=== PATIENT | male | born 1985 | race Caucasian/White ===

== ENCOUNTER 2018-07-09 15:41 | Outpatient (CLI) | payer MEDICAID, SELFPAY ==
--- NOTE | 2018-07-09 15:53 | DI.RAD_ITS ---
SYMPTOMS/DIAGNOSIS: CHRONIC COUGH, R05 PA AND LATERAL CHEST: Comparison is made with October,. The cardiac and mediastinal contours have a normal appearance. The lungs are well inflated and clear. No infiltrate , effusion or bronchial thickening is seen. IMPRESSION: Negative chest x-ray.
[2018-07-09 16:23] LABS: Abs Immature Grans 0.03 k/cumm (0.0-0.09); Absolute Basophil Count 0.03 k/cumm (0.0-0.2); Absolute Eosinophil Count 0.12 k/cumm (0.0-0.7); Absolute Lymphocyte Count 2.37 k/cumm (1.2-3.4); Absolute Monocyte Count 1.04 k/cumm (0.11-0.7); Absolute Neutrophil Count 6.82 k/cumm (1.2-6.7); Basophils % 0.3; Eosinophils % 1.2; HCT 43.1 % (40.0-50.0); HGB 14.9 g/dL (13.5-17.5); Immature Grans % 0.3; Lymphocytes % 22.8; Mean Corp. HGB Concentration 34.6 g/dL (32.0-36.0); Mean Corpuscular Hemoglobin 31.6 pg (27.0-33.0); Mean Corpuscular Volume 91.3 fL (80-95); Mean Platelet Volume 10.4 fL (8.0-11.0); Neutrophils % 65.4; Platelet Count 253 x1000/uL (130-400); RBC 4.72 m/cumm (4.50-6.00); RBC Distribution Width 13.9 % (11.8-14.1); White Blood Cell Count 10.41 k/cumm (4.4-10.8)
== END 2018-07-09 16:01 ==
PROVIDERS: PCP Nurse Practitioner Family; Visit Provider Nurse Practitioner
DX: R05 Cough (principal); M54.5 Low back pain
CPT/HCPCS: 36415; 71046; 85025

== ENCOUNTER 2018-07-18 15:15 | Outpatient (REF) | payer MEDICAID, SELFPAY ==
[2018-07-18 18:54] LABS: ALT 24 U/L (12-78); AST 22 U/L (15-37); Alkaline Phosphatase 86 U/L (46-116); Anion Gap 7.1 mmol/L (3-11); BUN 17 mg/dL (7-18); Bilirubin, Total 0.3 mg/dL (0.2-1.0); CO2 29.9 mmol/L (21.0-32.0); CREATININE 1.05 mg/dL (0.70-1.30); Calcium 8.6 mg/dL (8.5-10.1); Chloride 104 mmol/L (98-107); Glucose 94 mg/dL (70-100); Sodium 141 mmol/L (136-145); Total Protein 6.7 g/dL (6.4-8.2)
== END 2018-07-18 15:35 ==
LOC: NCHCN 15:15
PROVIDERS: PCP Nurse Practitioner Family; Visit Provider Nurse Practitioner
DX: R53.83 Other fatigue (principal)
CPT/HCPCS: 80053; 84443

== ENCOUNTER 2018-07-24 02:55 | Outpatient (CLI) | payer MEDICAID, SELFPAY ==
[2018-07-24] MEDS: Inhaler, Assist Device 1 EACH MC (13:52)
[2018-07-24] MEDS: Albuterol HFA 18 GM 200 PUFF INH IH (13:52)
--- NOTE | 2018-07-26 15:21 | PFT_ITS ---
DATE OF DICTATION: July 26, 2018. DATE OF SERVICE: July 24, 2018. REQUESTING PROVIDER: Makeda Crockett N.P. Spirometry shows mild obstructive airways disease with significant bronchodilator response. Lung volumes show no evidence of restriction. Diffusion capacity normal. Airways resistance normal. IMPRESSION: Mild obstructive airways disease with significant bronchodilator response. Clinical correlation recommended. SEE SCANNED DOCUMENT IN THE EMR FOR DATA AND GRAPHS
== END 2018-07-24 03:15 ==
PROVIDERS: PCP Nurse Practitioner Family; Visit Provider Nurse Practitioner
DX: R05 Cough (principal); F17.200 Nicotine dependence, unspecified, uncomplicated; J98.8 Other specified respiratory disorders
CPT/HCPCS: 94060; 94150; 94726; 94729

== ENCOUNTER 2020-03-26 10:36 | Outpatient (REF) | payer MEDICAID, SELFPAY ==
[2020-03-26 15:22] LABS: HCT 42.9 % (40.0-50.0); HGB 14.6 g/dL (13.5-17.5); Mean Corpuscular Hemoglobin 31.4 pg (27.0-33.0); Mean Corpuscular Volume 92.3 fL (80-95); Platelet Count 232 x1000/uL (130-400); RBC 4.65 m/cumm (4.50-6.00); RBC Distribution Width 14.4 % (11.8-14.1); White Blood Cell Count 8.47 k/cumm (4.4-10.8)
[2020-03-26 15:33] LABS: INR 1.1 (0.9-1.1); Prothrombin Time 10.6 sec (9.3-11.0)
== END 2020-03-26 10:56 ==
LOC: NCHCN 10:36
PROVIDERS: PCP Nurse Practitioner Family; Visit Provider Family Medicine
DX: K62.5 Hemorrhage of anus and rectum (principal)
CPT/HCPCS: 85027; 85610

== ENCOUNTER 2020-04-12 21:28 | Emergency (ER) | payer MEDICAID, SELFPAY ==
[2020-04-12 21:37] VITALS: BP 143/82; PULSE 88; RESP 20; TEMP 36.8; O2SAT 98
--- NOTE | 2020-04-12 21:59 | ED.GENADUL_ITS ---
Discharge Plan Disposition Patient Disposition: HOME Condition: Good Discharge Details Chief Complaint: Cellulitis Clinical Impression: Trench feet Primary Care Provider: Jolynn Churchill ED Provider: Pedro Cosby Home Meds and New Rx's Prescriptions: New lidocaine [Lidoderm] 1 PATCH patch 1 patch Topical Q24H Qty: 4 RF: 0 Continued albuterol sulfate [ProAir HFA] 90 mcg/actuation HFA aerosol inhaler 2 puff IH Q6H PRNRF: 0 budesonide-formoterol [Symbicort] 80-4.5 mcg/actuation HFA aerosol inhaler 2 puff IH DAILY RF: 0 Discharge Instructions Additional Instructions: You have trench foot. Please will apply half of the Lidoderm patch to each affected area daily. It is vitally important that you keep your feet dry at all times. I would recommend getting boots that are well aerated and breathable, and changing your feet 4 times per day at work. If your insurance does not cover the Lidoderm patches prescribed, you can get [id number] 4% Lidoderm patches fairly inexpensively. If you notice any worsening of your symptoms, or any new symptoms such as vomiting, diarrhea, fever, chills, shortness of breath, chest pain, numbness, weakness, or fainting , please return immediately to the emergency department for reevaluation. Please follow up with your primary care provider as soon as possible for reassessment and reevaluation. As always, it was a pleasure participating in your medical care today. 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 The pain appears to be on the skin, he is also noticed notable change in color, recently turning white on the bottoms. He admits to regular burning sensation. He denies any other complaints at this time. He has been taking Tylenol and Motrin chronically for his joint pain, and states that this is not been helping. The boots he wears are waterproof. He does not change his socks throughout the day. No other complaints at this time. The patient's feet demonstrate mild pallor on the bases, with a small amount of surrounding erythema around the medial lateral anterior and posterior aspect of the foot. No associated warmth. No evidence of cellulitis or gangrene. The patient has shown pictures previously which does demonstrate mild atypical skin deformation on the soles of the foot consistent with warm water immersion injury and inconsistent with erythromelalgia. At this time patient can be discharged, recommendations for sock changes 4 times per working day, keeping his feet dry at all times, getting boots that would best help facilitate this, and recommendations for drying techniques. Additionally we did apply Lidoderm patches to the base of the feet for better tolerance. Will give prescription for home use. Discussed red flags which to return. I have extensively reviewed the treatment plan and discharge instructions with the patient. I have addressed all patient concerns at this time. The patient was made aware of what symptoms to monitor for that would warrant a return to the emergency department. Discussed the plan with the patient, they demonstrate verbal understanding and agreement with our assessment and plan at this time. HPI General Date/Time Provider Initiated Documentation: 04/12/20 21:33 . 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 The pain appears to be on the skin, he is also noticed notable change in color, recently turning white on the bottoms. He admits to regular burning sensation. He denies any other complaints at this time. He has been taking Tylenol and Motrin chronically for his joint pain, and states that this is not been helping. The boots he wears are waterproof. He does not change his socks throughout the day. No other complaints at this time. Related Data Home Medications Medication Instructions Recorded Confirmed albuterol sulfate 90 mcg/actuation 2 puff IH Q6H PRN 11/27/19 04/12/20 aerosol inhaler budesonide-formoterol HFA 80 2 puff IH DAILY gm 11/27/19 04/12/20 mcg-4.5 mcg/actuation aerosol inhaler lidocaine [Lidoderm] 1 patch TOPICAL Q24H #4 patch 04/12/20 Previous Rx's Medication Instructions Recorded lidocaine [Lidoderm] 1 patch TOPICAL Q24H #4 patch 04/12/20 Allergies Allergy/AdvReac Type Severity Reaction Status Date / Time No Known Allergies Allergy Verified 04/12/20 21:40 General Stated Complaint: Cellulitis GENNARO: 3 Review of Systems All systems reviewed & are unremarkable except as noted in HPI and below PFSH Medical History Anxiety Chronic cough (Acute) Chronic lower back pain (Acute) Illiteracy Insomnia Low back pain Major depressive disorder, recurrent Elana-Schlatter's disease Painless rectal bleeding (Acute) PTSD (post-traumatic stress disorder) Spondylosis without myelopathy or radiculopathy, lumbar region (Acute) Tobacco dependence (Acute) ULNA MINUS VARIANT Undersocialized conduct disorder, aggressive type, unspecified Weight loss, intentional (Acute) Wrist pain, right Social History Smoking/Tobacco Use Status: Current every day Alcohol Intake: current Alcohol Intake frequency: 3 or more drinks per day Alcohol type: beer Drug use: Daily Substance use type: marijuana Do you feel safe at home: Yes Do you feel safe in your relationship?: Yes Exam Narrative Exam Narrative: 1.Const: Well-nourished, Well-developed, appearing stated age 2.Eyes: PERRL, no conjunctival injection, and symmetrical lids. 3.ENT: Atraumatic external nose and ears. Moist MM. Neck: Symmetric, trachea midline, No thyromegaly. 4.CVS: +S1/S2, No murmurs or gallops. Peripheral pulses 2+ and equal in all extremities. Brisk capillary refill in all extremities. 5.RESP: Unlabored respiratory effort. Clear to auscultation bilaterally. No wheezes rales or rhonchi 6.GI: Soft, Nontender/Nondistended, No hepatosplenomegaly. No guarding or rebound. 7.MSK: Normocephalic/Atraumatic, Extremities w/o deformity or ttp No cyanosis or clubbing, Normal movement of all extremities 8.Skin: The patient's feet demonstrate mild pallor on the basis, with a small amount of surrounding erythema around the medial lateral anterior and posterior aspect of the foot. No associated warmth. 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 Sensation grossly intact, no focal neurologic deficits. 10.Psych: (AAO) x3. Appropriate mood and affect Course Vital Signs Vital signs: Vital Signs Temperature 36.8 C 04/12/20 21:37 Pulse 88 04/12/20 21:37 Respiratory Rate 20 04/12/20 21:37 Blood Pressure 143/82 H 04/12/20 21:37 Pulse Oximetry 98 04/12/20 21:37 Temperature 36.8 C 04/12/20 21:37 Temperature Source Temporal Artery Scan 04/12/20 21:37 Pulse 88 04/12/20 21:37 Respiratory Rate 20 04/12/20 21:37 Respiratory Effort Non-Labored 04/12/20 21:40 Blood Pressure 143/82 H 04/12/20 21:37 Blood Pressure Position Sitting 04/12/20 21:37 Pulse Oximetry 98 04/12/20 21:37 Oxygen Delivery Method Room Air 04/12/20 21:37 Oxygen Flow Rate 0 04/12/20 21:37 Pain Level 10 04/12/20 21:37
[2020-04-12] MEDS: Lidocaine 5% Patch 1 PATCH TP (22:08)
[2020-04-12 22:09] VITALS: BP 143/82; PULSE 88; RESP 20; TEMP 36.8; O2SAT 98
== END 2020-04-12 22:10 | disposition home or self-care (01) ==
PROVIDERS: Emergency Provider Student in an Organized Health Care Education/Training Program; PCP Nurse Practitioner Family
DX: T69.021A Immersion foot, right foot, initial encounter (principal); T69.022A Immersion foot, left foot, initial encounter; X58.XXXA Exposure to other specified factors, initial encounter
CPT/HCPCS: 99282; 99283

== ENCOUNTER 2020-04-20 12:13 | Emergency (ER) | payer MEDICAID, SELFPAY ==
[2020-04-20 12:25] VITALS: BP 114/83; PULSE 91; RESP 16; TEMP 37; O2SAT 98
--- NOTE | 2020-04-20 13:34 | NUR.NOTE ---
Obi, provider notified and does not feel any reason to hold pt as pt denies to both myself and provider that he is not suicidal or homicidal
--- NOTE | 2020-04-20 13:41 | ED.GENADUL_ITS ---
Discharge Plan Disposition Patient Disposition: HOME Discharge Details Chief Complaint: PsychEval Clinical Impression: Adjustment disorder, Dyspnea Primary Care Provider: Jolynn Churchill ED Provider: Obi Anderson Home Meds and New Rx's Prescriptions: New albuterol sulfate [ProAir HFA] 90 mcg/actuation HFA aerosol inhaler 2 puff IH Q6H PRNQty: 6.7 RF: 0 budesonide-formoterol [Symbicort] 80-4.5 mcg/actuation HFA aerosol inhaler 2 puff IH BID Qty: 6.9 RF: 0 Continued albuterol sulfate [ProAir HFA] 90 mcg/actuation HFA aerosol inhaler 2 puff IH Q6H PRNRF: 0 budesonide-formoterol [Symbicort] 80-4.5 mcg/actuation HFA aerosol inhaler 2 puff IH DAILY RF: 0 Discharge Instructions Instructions: Dyspnea (ED) Additional Instructions: Symbicort and albuterol as directed. Please watch for new or worsening symptoms and return to the ER for any concerns. Please follow the instructions given to you by the mental health team. Discharge Data Discharge Date/Time-TO BE ENTERED AT DEPARTURE: 04/20/20 14:14 Medical Decision Making 34-year-old gentleman presents requesting a refill of his inhalers and a mental health evaluation. O2 sat is 98% on room air, lungs are clear to auscultation. I believe providing him a refill for his Symbicort and albuterol that he no longer has is perfectly reasonable, does not require further work-up here in the ER for his chronic cough-COPD. Patient is acting appropriately, requesting mental health evaluation per DCF. Patient is awake, oriented, cooperative, denies any suicidal or homicidal ideations. He reports feeling safe. Based upon my assessment I do believe that he is medically cleared, unless I do not have the entire story, I cannot see why laboratory values would be indicated for any mental health placement. I personally spoke with [facility] human services who then had a zoom call with the patient. They agree that he does not require any hospitalization and will set him up with outpatient resources. Patient is grateful that we were able to help him today, has no additional questions or concerns, and is requesting discharge as he has an appointment to make. Medical Records Medical records reviewed: Yes I reviewed the patient's medical records. ECG Data Attestation: I personally reviewed and interpreted this ECG (s) as follows: Interpretation: EKG performed at [address] reviewed and interpreted with Dr. Patrick. Sinus rhythm. Ventricular rate 78. No STEMI. HPI General Mode of arrival: ambulatory . Date/Time Provider Initiated Documentation: 04/20/20 12:37 . Limitations to Documentation: no limitations . Information obtained by: patient . HPI Narrative: This is a 34-year-old gentleman with history of anxiety, low back pain, depression, PTSD, current smoker, chronic cough, presenting to the ER requesting a evaluation from mental health at the request of DCF. He reports that a couple of days ago he was kicked out of his mother's house, he was upset and trying to get a reaction from his mother, made a comment about being suicidal with a knife. He denies any depression at this time, reports feeling safe. He reports that he has no desire to harm himself or other people and again his comments were made purely an attempt to get a reaction from his mother. He states because of this, DCF got involved and recommended a mental health evaluation. Patient also reports that after he was kicked out of his mother's house he has been without his inhalers for the past 3 days. He reports that he does not like wearing a mask because he feels as though this makes his breathing worse. He currently denies any cough, shortness of breath, fever. He denies any wheezing. He is requesting a note stating he was here in the ER today for both his inhaler refill and for a mental health evaluation. Patient is currently asymptomatic and has no additional questions or concerns. Related Data Home Medications Medication Instructions Recorded Confirmed albuterol sulfate 90 mcg/actuation 2 puff IH Q6H PRN 11/27/19 04/20/20 aerosol inhaler budesonide-formoterol HFA 80 2 puff IH DAILY gm 11/27/19 04/20/20 mcg-4.5 mcg/actuation aerosol inhaler albuterol sulfate [ProAir HFA] 2 puff IH Q6H PRN #6.7 gm 04/20/20 budesonide-formoterol [Symbicort] 2 puff IH BID #6.9 gm 04/20/20 Previous Rx's Medication Instructions Recorded albuterol sulfate [ProAir HFA] 2 puff IH Q6H PRN #6.7 gm 04/20/20 budesonide-formoterol [Symbicort] 2 puff IH BID #6.9 gm 04/20/20 Allergies Allergy/AdvReac Type Severity Reaction Status Date / Time No Known Allergies Allergy Verified 04/20/20 12:33 General Stated Complaint: PsychEval GENNARO: 3 Review of Systems Constitutional Constitutional: Denies fever(s) and Denies headache(s) ENT Ears, Nose, Mouth, and Throat: Denies headache(s) Cardiovascular Cardiovascular: Denies chest pain and Denies dyspnea Respiratory Respiratory: Denies cough and Denies dyspnea Gastrointestinal Gastrointestinal: Denies abdominal pain, Denies diarrhea and Denies nausea Musculoskeletal Musculoskeletal: Reports back pain (Chronic) Integumentary/Breasts Skin/Breast: Denies rash Neurologic Neurologic: Denies headache(s) Psychiatric Psychiatric: Denies homicidal ideation and Denies suicidal ideation [facility] Medical History Anxiety Chronic cough (Acute) Chronic lower back pain (Acute) Illiteracy Insomnia Low back pain Major depressive disorder, recurrent Sondheimer-Schlatter's disease Painless rectal bleeding (Acute) PTSD (post-traumatic stress disorder) Spondylosis without myelopathy or radiculopathy, lumbar region (Acute) Tobacco dependence (Acute) ULNA MINUS VARIANT Undersocialized conduct disorder, aggressive type, unspecified Weight loss, intentional (Acute) Wrist pain, right Social History Smoking/Tobacco Use Status: Current every day Tobacco Type: cigarettes Alcohol Intake: current Alcohol Intake frequency: 3 or more drinks per day Alcohol type: beer Drug use: Daily Substance use type: marijuana Do you feel safe at home: Yes Do you feel safe in your relationship?: Yes Exam Const General: cooperative, healthy appearing, comfortable and no acute distress Orientation: alert, awake and oriented x3 HENMT Head: normal to inspection, normocephalic and atraumatic Face and sinus: normal facial exam Mouth: moist mucous membranes Eyes Conjunctivae: conjunctivae normal Sclera: sclerae normal Neck Neck: normal visual inspection, trachea midline and supple Resp Effort & Inspection: normal respiratory effort and able to speak in complete sentences Auscultation: clear to auscultation bilaterally Cardio Rate: regular rate Rhythm: regular rhythm Skin General skin exam: no rashes or lesions noted Neuro General: patient alert, patient awake, moves all extremities and no focal motor deficits Sensory Exam: no sensory deficits noted Extrem General: normal to inspection and full ROM Psych Appearance: grossly normal Mental Status: mental status grossly normal Speech and Movement: speech and movement normal Mood: congruent mood Affect: normal affect Attitude: cooperative Thought Process: normal Thought Content: normal Insight: insight good Course Vital Signs Vital signs: Vital Signs Temperature 37 C 04/20/20 12:25 Pulse 91 H 04/20/20 12:25 Respiratory Rate 16 04/20/20 12:25 Blood Pressure 114/83 04/20/20 12:25 Pulse Oximetry 98 04/20/20 12:25 Temperature 37 C 04/20/20 12:25 Temperature Source Skin 04/20/20 12:25 Pulse 91 H 04/20/20 12:25 Respiratory Rate 16 04/20/20 12:25 Respiratory Effort Non-Labored 04/20/20 12:25 Blood Pressure 114/83 04/20/20 12:25 Blood Pressure Position Sitting 04/20/20 12:25 Pulse Oximetry 98 04/20/20 12:25 Oxygen Delivery Method Room Air 04/20/20 12:25 Oxygen Flow Rate 0 04/20/20 12:25 Pain Level 9 04/20/20 12:25 Comment 04/20/20 12:25
--- NOTE | 2020-04-20 13:49 | NUR.NOTE ---
speaking with mental health screener on tablet
== END 2020-04-20 14:14 | disposition home or self-care (01) ==
PROVIDERS: Emergency Provider Physician Assistant; PCP Nurse Practitioner Family
DX: F43.23 Adjustment disorder with mixed anxiety and depressed mood (principal); R06.00 Dyspnea, unspecified; F17.210 Nicotine dependence, cigarettes, uncomplicated; Z63.8 Other specified problems related to primary support group; J44.9 Chronic obstructive pulmonary disease, unspecified
CPT/HCPCS: 93005; 99283; 93010

== ENCOUNTER 2021-03-28 21:59 | Emergency (ER) | payer MEDICAID, SELFPAY ==
[2021-03-28 22:03] VITALS: BP 132/94; PULSE 91; RESP 16; TEMP 36.4; O2SAT 98
[2021-03-28 22:07] VITALS: RESP 16
--- NOTE | 2021-03-28 22:08 | W.ED.GENAD ---
Discharge Plan Disposition Patient Disposition: HOME Condition: Good Discharge Details Clinical Impression: External hemorrhoid, thrombosed Primary Care Provider: Jolynn Churchill ED Provider: Kvng Chopra Home Meds and New Rx's Prescriptions: New Proctofoam HC 1-1 % foam [address] QID PRNQty: 10 RF: 0 Continued albuterol sulfate [ProAir HFA] 90 mcg/actuation HFA aerosol inhaler 2 puff IH Q6H PRNQty: 6.7 RF: 0 budesonide-formoterol [Symbicort] 80-4.5 mcg/actuation HFA aerosol inhaler 2 puff IH BID Qty: 6.9 RF: 0 Discharge Instructions Instructions: Hemorrhoids (ED), Sitz Bath (DC) Additional Instructions: Short-term management for current thrombosed hemorrhoid should consist of sitz bath's, increased fiber and fluid intake, use of Proctofoam. Long-term should follow-up with surgeon for evaluation. Return to ED for inability to have bowel movement, uncontrolled prolonged bleeding, severe worsening pain. Referrals: [facility] [Provider Group] Discharge Data Discharge Date/Time-TO BE ENTERED AT DEPARTURE: 03/28/21 22:35 Medical Decision Making Patient with a large tender external hemorrhoid that is red and soft not purple and firm. Very hesitant to cut into this as I suspect more bleeding than anything. Will treat symptomatically overnight with lidocaine jelly with prescription for Proctofoam HC to picker in the morning. Recommend increasing fiber and fluid intake to prevent constipation. Recommend sitz bath. Referral to surgery as he has had hemorrhoid problems for years. Return to ED for abdominal pain, uncontrolled bleeding, significantly worsening pain, concerns HPI General Mode of arrival: ambulatory. Date/Time Provider Initiated Documentation: 03/28/21 22:08. Limitations to Documentation: no limitations. Information obtained by: patient and RN notes reviewed. HPI Narrative: Patient presents to ED with a bulging, painful hemorrhoid which has been present for a few days now. He intermittently has bleeding. He has been using [id number] creams without significant relief. Taking a hot shower sometimes helps. He has had problems with hemorrhoids for years but nothing this severe. He denies any abdominal pain. Related Data Home Medications Medication Instructions Recorded Confirmed albuterol sulfate [ProAir HFA] 2 puff IH Q6H PRN #6.7 gm 04/20/20 03/28/21 budesonide-formoterol [Symbicort] 2 puff IH BID #6.9 gm 04/20/20 03/28/21 hydrocortisone-pramoxine [address] QID PRN #10 g 03/28/21 [Proctofoam HC] Previous Rx's Medication Instructions Recorded albuterol sulfate [ProAir HFA] 2 puff IH Q6H PRN #6.7 gm 04/20/20 budesonide-formoterol [Symbicort] 2 puff IH BID #6.9 gm 04/20/20 hydrocortisone-pramoxine [address] QID PRN #10 g 03/28/21 [Proctofoam HC] Allergies Allergy/AdvReac Type Severity Reaction Status Date / Time No Known Allergies Allergy Verified 03/28/21 22:11 General Stated Complaint: GenMedical GENNARO: 4 Review of Systems Constitutional Constitutional: Denies fever(s) Cardiovascular Cardiovascular: Denies dyspnea Respiratory Respiratory: Reports cough (chronic smokers) and Denies dyspnea Gastrointestinal Gastrointestinal: Denies abdominal pain, Denies diarrhea and Denies vomiting PFSH Medical History Anxiety Chronic lower back pain Illiteracy Insomnia Major depressive disorder, recurrent PTSD (post-traumatic stress disorder) Tobacco dependence Undersocialized conduct disorder, aggressive type, unspecified Surgical History (Updated 03/28/21 @ 22:10 by Kvng Chopra MD) H/O wrist surgery Social History Smoking/Tobacco Use Status: Current every day Tobacco Type: cigarettes Smoking risk assessment performed?: Yes Alcohol Intake: current Alcohol Intake frequency: 3 or more drinks per day Alcohol type: beer Drug use: Daily Substance use type: marijuana Do you feel safe at home: Yes Do you feel safe in your relationship?: Yes Exam Const General: cooperative, comfortable and no acute distress HENMT Head: normocephalic and atraumatic Neck Neck: trachea midline and supple Resp Effort & Inspection: normal respiratory effort GI Rectal Exam: hemorrhoids, tenderness and other (Large, red, soft, tender, external hemorrhoid) Course Vital Signs Vital signs: Vital Signs Temperature 97.5 F L 03/28/21 22:03 Pulse 91 H 03/28/21 22:03 Respiratory Rate 16 03/28/21 22:03 Blood Pressure 132/94 H 03/28/21 22:03 Pulse Oximetry 98 03/28/21 22:03 Temperature 97.5 F L 03/28/21 22:03 Temperature Source Skin 03/28/21 22:03 Pulse 91 H 03/28/21 22:03 Respiratory Rate 16 03/28/21 22:03 Respiratory Effort Non-Labored 03/28/21 22:06 Blood Pressure 132/94 H 03/28/21 22:03 Blood Pressure Position Sitting 03/28/21 22:03 Pulse Oximetry 98 03/28/21 22:03 Oxygen Delivery Method Room Air 03/28/21 22:03 Oxygen Flow Rate 0 03/28/21 22:03 Pain Level 10 03/28/21 22:03
[2021-03-28] MEDS: Lidocaine 2% Jelly 6 ML SYR TP (22:21)
== END 2021-03-28 22:35 | disposition home or self-care (01) ==
PROVIDERS: Emergency Provider Emergency Medicine; PCP Nurse Practitioner Family
DX: K64.5 Perianal venous thrombosis (principal)
CPT/HCPCS: 99283

== ENCOUNTER 2021-04-25 03:05 | Outpatient (CLI) | payer MEDICAID, SELFPAY ==
[2021-04-25 12:27] LABS: Source Nasal/Nares
[2021-04-25 16:46] LABS: COVID-19 PCR Negative (Negative)
== END 2021-04-25 03:06 | disposition home or self-care (01) ==
LOC: LBO 03:05
PROVIDERS: PCP Nurse Practitioner Family; Visit Provider Surgery
DX: Z20.822 Contact with and (suspected) exposure to COVID-19 (principal); Z01.818 Encounter for other preprocedural examination
CPT/HCPCS: 87635

== ENCOUNTER 2021-04-26 06:10 | Day surgery (SDC) | payer MEDICAID, SELFPAY ==
--- NOTE | 2021-04-25 15:19 | W.PM.DSUDISC ---
Discharge Plan Disposition Patient Disposition: HOME Condition: Good Discharge Details Reason For Visit: hemorrhoid surgery Attending Provider: Analia Greenwood Primary Care Provider: Jolynn Churchill Home Meds and New Rx's Prescriptions: New tramadol [Ultram] 50 mg tablet 50 mg PO Q4H PRNQty: 14 RF: 0 dibucaine 1 % ointment 1 applic AL QID Qty: 56 RF: 0 Continued bisacodyl [Dulcolax (bisacodyl)] 5 mg tablet,delayed release (DR/EC) 5 mg PO DAILY Qty: 30 RF: 12 docusate sodium [Colace] 100 mg capsule 100 mg PO BID RF: 0 fluticasone propion-salmeterol [Advair Diskus] 250-50 mcg/dose blister with device 1 inh inhalation BID RF: 0 albuterol sulfate [ProAir HFA] 90 mcg/actuation HFA aerosol inhaler 2 puff IH Q6H PRNQty: 6.7 RF: 0 budesonide-formoterol [Symbicort] 80-4.5 mcg/actuation HFA aerosol inhaler 2 puff IH BID Qty: 6.9 RF: 0 acetaminophen 500 mg Tablet 1,000 mg PO DIRECTED PRNRF: 0 Discontinued hydrocortisone 2.5 % cream 1 applic topical BID PRNRF: 0 Proctofoam HC 1-1 % foam 1 applic AL QID PRNQty: 10 RF: 0 No Action hydrocortisone-pramoxine 1-1 % cream 1 applic topical QID RF: 0 Discharge Instructions Additional Instructions: Home Care Instructions after Rectal Surgery Pain control: Ibuprofen 600mg 6hrs (take w/ food. Do not take on an empty stomach) and Tylenol 1000mg by mouth (ibuprofen 400-600mg) every 8 hours. Do not take if you have ulcers or sensitivity to aspirin. Do not take Tylenol if you have hepatitis or liver failure. Alternate the Tylenol and ibuprofen. Take pain meds continuously for the first 72hrs. After 72hrs, you can take as needed if you are having pain. How to prevent constipation: The first bowel movement after surgery will be painful. Do not let yourself get constipated. Stay on a stool softener for the first two weeks after surgery. If you do not have a bowel movement daily, use Milk of Magnesia or Miralax. You may have bleeding or drainage after rectal surgery; especially when you move your bowels. Use a sanitary napkin to collect the discharge. If you are passing large clots or having to change the pad more than every 4 hours, call the clinic or go to the ER. You may experience spasms in the rectal muscles. This is normal after surgery and last for about two weeks. They can become more intense with bowel movements. The best remedy is to soak in a bathtub of plain warm water- no Epsom salts, essential oil or soap. It takes about 10 minutes further the spasm to stop. You may want to do this after BM as well. It is ok to shower. Avoid soap on the surgical area. Use a pillow to sit on. Follow a mild bland diet. Avoid alcohol, spicy food, citrus, and tomatoes. Avoid strenuous activity (running, jogging, and power walking, swimming, weight lifting) for two weeks. No lifting over 20 pounds for 2 weeks. F/u in surgery clinic in 2 weeks Activity:: see above Remove Dressings/Wound Care:: 24 hours Shower/Bathe:: 24 hours Discharge Orders Discharge Orders: Discharge Order (Routine); Ordered 04/25/21 Ordered By: Analia Greenwood DS: Diagnosis Discharge Diagnosis (1) External hemorrhoid, thrombosed: Status: Acute
--- NOTE | 2021-04-25 15:25 | W.PM.OP ---
Date of service: 04/26/21 Time of Service: 08:00 Operative Note Operative Note DATE OF PROCEDURE: 04/26/21 PRE-OP DIAGNOSIS: Thrombosed ext. hemorrhoid POST-OP DIAGNOSIS: same PROCEDURE: exicision external thrombosed hemorrhoid SURGEON: Analia Greenwood ANESTHESIA TYPE: Local By Surgeon and General:No Airway Refer to Anesthesia Record ESTIMATED BLOOD LOSS: 5 PATHOLOGY: none sent COMPLICATIONS: None Patient was transported to: same day Patient's condition: stable Procedure Description: Patient is here today for excision of a thrombosed hemorrhoid. Informed consent is obtained explaining risks and benefits of the procedure including but not limited to: Bleeding, infection, recurrence, chronic pain or chronic numbness, damage to sphincters resulting in loss of control or stenosis, complications from anesthesia, prolonged healing, and other unforetold complications. Patient is brought to the operative room suite and placed in the supine position. Anesthesia is administered per the department of anesthesia. Patient is then placed into low lithotomy stirrups. He is prepped and draped in the usual sterile fashion using a Betadine scrub solution. Timeout is performed. 20 cc of 0.5% Marcaine with epi is used for local anesthetization. Hurtado retractor is placed in the rectum. He has a thrombosed hemorrhoid that has not resolved with conservative medical management-over the past 6 weeks. This is grasped with an Allis and excised with electrocautery down to the sphincters. Is closed with 4-0 Vicryl in running fashion. Dibucaine impregnated Gelfoam placed. There are no other masses or hemorrhoids in the rectum. The patient tolerated the procedure well without complication and transferred to recovery room in stable condition.
[2021-04-26 06:41] VITALS: BP 134/92; PULSE 78; RESP 16; TEMP 36.5; O2SAT 98
[2021-04-26] MEDS: Lactated Ringers 1,000 ML 100 ML IV (06:50)
--- NOTE | 2021-04-26 07:01 | W.ANESPRE ---
General Info Date of Service Date Performed: 04/26/21 Height: 6 ft 1 in Weight: 75 kg Body Mass Index (BMI): 21.8 Surgical Procedure: Operation Date: 04/26/21 07:40 Proposed Procedures Side Surgeon p EXC HEMORRHOID Analia Greenwood, DO Meds Allergies and Home Medications Allergies Allergy/AdvReac Type Severity Reaction Status Date / Time aloe Allergy Intermediate blisters Verified 04/26/21 06:35 on skin No Known Drug Allergies Allergy Unknown Verified 04/26/21 06:35 mushroom Allergy Anaphylaxis Unverified 04/26/21 06:35 Pickle Allergy Anaphylaxis Uncoded 04/26/21 06:35 Home Medication Medication Instructions Recorded albuterol sulfate [ProAir HFA] 2 puff IH Q6H PRN #6.7 gm 04/20/20 budesonide-formoterol [Symbicort] 2 puff IH BID #6.9 gm 04/20/20 docusate sodium 100 mg capsule 100 mg PO BID 04/18/21 fluticasone 250 mcg-salmeterol 50 1 inh INHALATION BID 04/18/21 mcg/dose blistr powdr for inhalation bisacodyl 5 mg tablet,delayed 5 mg PO DAILY #30 tab 04/20/21 release acetaminophen 1,000 mg PO DIRECTED PRN 04/25/21 hydrocortisone-pramoxine 1 applic TOPICAL QID 04/26/21 Current Visit Medications: Current Medications Generic Name Dose Route Start Last Admin Trade Name Freq PRN Reason Stop Dose Admin Ringer's Solution 1,000 mls @ 100 mls/hr 04/26/21 06:00 04/26/21 06:50 IV 05/25/21 23:59 100 mls/hr INFUSION DAWN Administration Ondansetron HCl 4 mg/ Sodium 52 mls @ 200 mls/hr 04/25/21 15:18 Chloride IVPB Q6H PRN PRN IV Miscellaneous Supplies 1 each 04/26/21 06:00 Iv Access IV 05/25/21 23:59 DIRECTED DAWN Sodium Chloride 0 ml 04/26/21 06:00 Normal Saline Flush 10 Ml Syr IV 05/25/21 23:59 PRN PRN Sodium Chloride 0 ml 04/26/21 06:00 Normal Saline 10 Ml Vial IJ 05/25/21 23:59 DIRECTED PRN Sterile Water 0 ml 04/26/21 06:00 Water,Injection,Sterile 10 Ml Vial IJ 05/25/21 23:59 DIRECTED PRN Tramadol HCl 50 mg 04/25/21 15:18 Tramadol 50 Mg Tab PO Q6H PRN PRN Pain PFSH Active Problems Active Problems: Problem Status Onset Code External hemorrhoid, thrombosed K64.5 Medical History Medical History Anxiety Chronic cough Chronic lower back pain Cigarette smoker Constipation COPD (chronic obstructive pulmonary disease) External hemorrhoid, thrombosed Illiteracy Insomnia Major depressive disorder, recurrent PTSD (post-traumatic stress disorder) Spondylosis of lumbar region without myelopathy or radiculopathy Tobacco dependence Undersocialized conduct disorder, aggressive type, unspecified Surgical History Surgical History H/O wrist surgery Tobacco Smoking/Tobacco Use Status: Current every day Tobacco Type: cigarettes Alcohol Alcohol Intake: current Alcohol intake frequency: 3 or more drinks per day Alcohol type: beer Substance Use Substance use: Daily Substance use type: marijuana Details: No coltonjosephine today - 04/26/21 Vital Signs and Lab Results Vital Signs Most Recent Vital Signs in EMR: Most Recent Vital Signs Temp Pulse Resp BP Pulse Ox 36.5 C 78 16 134/92 H 98 04/26/21 06:41 04/26/21 06:41 04/26/21 06:41 04/26/21 06:41 04/26/21 06:41 Lab Results Blood Type / Crossmatch: No Data to Display Complete Blood Count: No Data to Display Complete Metabolic Panel: No Data to Display Liver Function Panel: No Data to Display Coagulation Panel: No Data to Display Cardiac Panel: No Data to Display Arterial Blood Gas: No Data to Display Venous Blood Gas: No Data to Display Pancreas Panel: No Data to Display Thyroid Panel: No Data to Display Infectious Disease: Coronavirus (COVID-19)(PCR) Negative (Negative) 04/25/21 08:57 04/25/21 Coronavirus 2019 Source Nasal/Nares 04/25/21 08:57 04/25/21 Blood Cultures: No Data to Display Toxicology Panel: No Data to Display Anesthesia Assessment and Plan Anesthesia History Personal History: No History of Anesthesia Complications Family History: No Family History of Anesthesia Complications Exercise Tolerance Exercise Tolerance: Metabolic Equivalents>4 Pertinent Negatives Pertinent Negatives: No Symptoms of GERD, No Major Cardiovascular Symptoms or Complaints and No Major Pulmonary Symptoms or Complaints Cardiac & Pulmonary Exam Cardiac Exam: Normal S1/S2 Heart Sounds Pulmonary Exam: Clear Bilateral Breath Sounds Airway Exam Known Difficult Airway: No Mallampati Class: 1 Mouth Opening: Normal (> 3cm) Thyromental Distance: Greater than 3 cm Neck Range of Motion: Full ROM Neck Circumference: Normal Teeth Condition: Normal Dentition ASA Classification ASA Score: ASA 2 Emergency Case?: No NPO Status NPO Status: NPO Clears >2 hours, Solids >8 hours Anesthesia Plan Resuscitation Status: Full Code Anesthesia Technique: General Anesthesia Airway Planned: Natural Airway Monitors Used: Standard Monitors
[2021-04-26 07:06] VITALS: BMI 21.8
[2021-04-26] MEDS: Gelatin SPONGE 12-7 MM PKT 1 EACH TP (07:51)
[2021-04-26] MEDS: Dibucaine 1% 28 GM TUBE (07:51)
[2021-04-26 08:05] VITALS: BP 112/74; PULSE 76; RESP 16; TEMP 36.3; O2SAT 99
--- NOTE | 2021-04-26 08:05 | W.ANESPOSTOP ---
Postoperative Evaluation Date, Time and Location Date Performed: 04/26/21 Time Performed: 08:05 Patient Location: Day Surgery Unit Vital Signs Most Recent Imported Vital Signs: Most Recent Vital Signs Temp Pulse Resp BP Pulse Ox 36.5 C 78 16 134/92 H 98 04/26/21 06:41 04/26/21 06:41 04/26/21 06:41 04/26/21 06:41 04/26/21 06:41 Most Recent Manually Entered Vital Signs: Adult Blood Pressure: 112/74 Heart Rate: 76 Respirations: 16 Oxygen Saturation (%): 99 Temperature (C): 36.3 C Pain Score (0-10 Scale): 0 Pain Score Most Recent Pain Score: Most Recent Pain Score Pain Level 8 04/26/21 06:41 Assessment Mental Status: Awake (Alert & Oriented to Patient Baseline) Airway and Respiratory Function: Patent airway with normal (patient baseline) respiratory exam Cardiovascular Function: Hemodynamically Stable Hydration Status: Adequately Hydrated Nausea & Vomiting: No Nausea or Vomiting Pain: Pt. Denies Any Pain Peripheral Nerve Block: Patient did not receive a nerve block
[2021-04-26 08:07] VITALS: BP 112/74; PULSE 76; RESP 16; TEMPC 36.3; O2SAT 99
[2021-04-26] MEDS: traMADol 50 MG TAB PO (08:28)
[2021-04-26 08:29] VITALS: BP 125/79; PULSE 79; RESP 18; TEMP 36.5; O2SAT 99
--- NOTE | 2021-04-26 12:17 | NUR.NOTE ---
Pt called in s/p discharge to report excruciating pain. Pt reports that he tried everything in regards to his discharge instructions (prescribed ointment, pain medication, and noted that he was sitting on a pillow. Pt denies bleeding, only c/o pain at this time. Pt reports that he is in so much pain that he has tears in his eyes. This nurse asked pt when he last took the prescribed Tramadol to which he responded 15 minutes ago, this nurse encouraged pt to try to give it some more time and try to reposition to relieve some pressure from buttocks; pt verbalized understanding and then stated that he actually took the Tramadol about an hour ago and it wasn't helping. At time of call, surgeon in the midst of another surgical case. Pt made aware of this and that this nurse would let her know his status as soon as she was available, but that it may be a couple hours from now, this nurse encouraged pt to go to ED if he could not wait to hear back; pt verbalized understanding and stated that he would prefer to go to ED than to wait.
== END 2021-04-26 09:00 | disposition home or self-care (01) ==
LOC: SUR 06:50
PROVIDERS: PCP Nurse Practitioner Family; Visit Provider Surgery
PROC: (CPT 46320; principal; 2021-04-26 07:30)
DX: K64.5 Perianal venous thrombosis (principal)
CPT/HCPCS: 46320; J2704

== ENCOUNTER 2021-04-26 12:35 | Emergency (ER) | payer MEDICAID, SELFPAY ==
[2021-04-26 12:38] VITALS: BP 117/75; PULSE 75; RESP 16; TEMP 36.7; O2SAT 97
[2021-04-26] MEDS: Lidocaine 2% Viscous 15 ML CUP PO ×2 (12:57→13:30)
--- NOTE | 2021-04-26 13:07 | W.ED.GENAD ---
Discharge Plan Disposition Patient Disposition: HOME Condition: Good Discharge Details Clinical Impression: Post-op pain Primary Care Provider: Jolynn Churchill ED Provider: Pedro Cosby Home Meds and New Rx's Prescriptions: Continued bisacodyl [Dulcolax (bisacodyl)] 5 mg tablet,delayed release (DR/EC) 5 mg PO DAILY Qty: 30 RF: 12 docusate sodium [Colace] 100 mg capsule 100 mg PO BID RF: 0 fluticasone propion-salmeterol [Advair Diskus] 250-50 mcg/dose blister with device 1 inh inhalation BID RF: 0 albuterol sulfate [ProAir HFA] 90 mcg/actuation HFA aerosol inhaler 2 puff IH Q6H PRNQty: 6.7 RF: 0 budesonide-formoterol [Symbicort] 80-4.5 mcg/actuation HFA aerosol inhaler 2 puff IH BID Qty: 6.9 RF: 0 acetaminophen 500 mg Tablet 1,000 mg PO DIRECTED PRNRF: 0 hydrocortisone-pramoxine 1-1 % cream 1 applic topical QID RF: 0 tramadol [Ultram] 50 mg tablet 50 mg PO Q4H PRNQty: 14 RF: 0 dibucaine 1 % ointment 1 applic AR QID Qty: 56 RF: 0 Discharge Instructions Additional Instructions: At this time your hemorrhoid incision site looks excellent. There is no evidence of rupture of the sutures, bleeding, or infection. Please take 1000 mg of Tylenol every 6 hours and 800 mg of ibuprofen every 6 hours to help with the inflammation which will subsequently help with the pain. Please use some of the liquid numbing medicine as needed to help with pain. If you notice any worsening of your symptoms, or any new symptoms such as vomiting, diarrhea, fever, chills, shortness of breath, chest pain, numbness, weakness, or fainting , please return immediately to the emergency department for reevaluation. Please follow up with your surgeon for reassessment and reevaluation. As always, it was a pleasure participating in your medical care today. Referrals: Analia Greenwood DO [OSTEOPATHIC DOCTOR] - Medical Decision Making This is a 35-year-old male with a past medical history of hemorrhoids. He presents today for pain at his postop hemorrhoid site. Just this morning the patient had excisional hemorrhoidectomy. The procedure went well. When the patient went home he sneezed and tripped while walking, which he states caused a notable increase in pain in his rectal area. He denies any bleeding that is new or discharge otherwise. No other complaints at this time. He does use tramadol for pain. No other modifying factors. Review of the surgery with the surgeon and review of postoperative report indicate there was no complications during procedure. Physical exam demonstrates a well-appearing postop site, no drainage or discharge. No dehiscence, no rupture of the sutures. No other abnormalities. Viscous lidocaine was given patient had some improvement with this. I did contact the surgeon Dr. Beckman and Dr. Greenwood who are in the OR together. Discussed the case briefly with them. No additional recommendations at this time. Patient will be discharged home with Viscous Lidocaine and recommendations for continued Tylenol, Motrin, and close follow-up with PCP/surgeon. I have extensively reviewed the treatment plan and discharge instructions with the patient. I have addressed all patient concerns at this time. The patient was made aware of what symptoms to monitor for that would warrant a return to the emergency department. Discussed the plan with the patient, they demonstrate verbal understanding and agreement with our assessment and plan at this time. The documentation in this chart was dictated using [employer] dictation software. Please excuse any dictation errors. HPI General Date/Time Provider Initiated Documentation: 04/26/21 12:40. HPI Narrative: This is a 35-year-old male with a past medical history of hemorrhoids. He presents today for pain at his postop hemorrhoid site. Just this morning the patient had excisional hemorrhoidectomy. The procedure went well. When the patient went home he sneezed and tripped while walking, which he states caused a notable increase in pain in his rectal area. He denies any bleeding that is new or discharge otherwise. No other complaints at this time. He does use tramadol for pain. No other modifying factors. Review of the surgery with the surgeon and review of postoperative report indicate there was no complications during procedure. Related Data Home Medications Medication Instructions Recorded Confirmed albuterol sulfate [ProAir HFA] 2 puff IH Q6H PRN #6.7 gm 04/20/20 04/26/21 budesonide-formoterol [Symbicort] 2 puff IH BID #6.9 gm 04/20/20 04/26/21 docusate sodium 100 mg capsule 100 mg PO BID 04/18/21 04/26/21 fluticasone 250 mcg-salmeterol 50 1 inh INHALATION BID 04/18/21 04/26/21 mcg/dose blistr powdr for inhalation bisacodyl 5 mg tablet,delayed 5 mg PO DAILY #30 tab 04/20/21 04/26/21 release acetaminophen 1,000 mg PO DIRECTED PRN 04/25/21 04/26/21 dibucaine 1 applic AR QID #56 g 04/26/21 04/26/21 hydrocortisone-pramoxine 1 applic TOPICAL QID 04/26/21 04/26/21 tramadol [Ultram] 50 mg PO Q4H PRN #14 tab 04/26/21 04/26/21 Previous Rx's Medication Instructions Recorded albuterol sulfate [ProAir HFA] 2 puff IH Q6H PRN #6.7 gm 04/20/20 budesonide-formoterol [Symbicort] 2 puff IH BID #6.9 gm 04/20/20 bisacodyl 5 mg tablet,delayed 5 mg PO DAILY #30 tab 04/20/21 release dibucaine 1 applic AR QID #56 g 04/26/21 tramadol [Ultram] 50 mg PO Q4H PRN #14 tab 04/26/21 Allergies Allergy/AdvReac Type Severity Reaction Status Date / Time aloe Allergy Intermediate blisters Verified 04/26/21 12:47 on skin No Known Drug Allergies Allergy Unknown Verified 04/26/21 12:47 mushroom Allergy Anaphylaxis Unverified 04/26/21 12:47 Pickle Allergy Anaphylaxis Uncoded 04/26/21 12:47 General Stated Complaint: GenMedical GENNARO: 3 Review of Systems All systems reviewed & are unremarkable except as noted in HPI and below PFSH Medical History Anxiety Chronic cough Chronic lower back pain Cigarette smoker Constipation COPD (chronic obstructive pulmonary disease) External hemorrhoid, thrombosed Illiteracy Insomnia Major depressive disorder, recurrent PTSD (post-traumatic stress disorder) Spondylosis of lumbar region without myelopathy or radiculopathy Tobacco dependence Undersocialized conduct disorder, aggressive type, unspecified Surgical History H/O wrist surgery Social History Smoking/Tobacco Use Status: Current every day Tobacco Type: cigarettes Smoking risk assessment performed?: Yes Alcohol Intake: current Alcohol Intake frequency: 3 or more drinks per day Alcohol type: beer Drug use: Daily Substance use type: marijuana Details: No anika today - 04/26/21 Do you feel safe at home: Yes Do you feel safe in your relationship?: Yes Exam Narrative Exam Narrative: 1.Const: Well-nourished, Well-developed, appearing stated age 2.Eyes: PERRL, no conjunctival injection, and symmetrical lids. 3.ENT: Atraumatic external nose and ears. Moist MM. Neck: Symmetric, trachea midline, No thyromegaly. 4.CVS: +S1/S2, No murmurs or gallops. Peripheral pulses 2+ and equal in all extremities. Brisk capillary refill in all extremities. 5.RESP: Unlabored respiratory effort. Clear to auscultation bilaterally. No wheezes rales or rhonchi 6.GI: Soft, Nontender/Nondistended, No hepatosplenomegaly. No guarding or rebound. Rectal exam was performed with female nurse at bedside, exam demonstrates post operative incision site is clean dry and intact. Sutures are in place. No bleeding at all at this point. No evidence of dehiscence or rupture. No redness or drainage. 7.MSK: Normocephalic/Atraumatic, Extremities w/o deformity or ttp No cyanosis or clubbing, Normal movement of all extremities 8.Skin: Warm, Dry. No rashes or lesions. 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 Sensation grossly intact, no focal neurologic deficits. 10.Psych: (AAO) x3. Appropriate mood and affect Course Vital Signs Vital signs: Vital Signs Temperature 36.7 C 04/26/21 12:38 Pulse 75 04/26/21 12:38 Respiratory Rate 16 04/26/21 12:38 Blood Pressure 117/75 04/26/21 12:38 Pulse Oximetry 97 04/26/21 12:38 Temperature 36.7 C 04/26/21 12:38 Temperature Source Skin 04/26/21 12:38 Pulse 75 04/26/21 12:38 Respiratory Rate 16 04/26/21 12:38 Respiratory Effort Non-Labored 04/26/21 12:45 Respiratory Depth Normal 04/26/21 12:45 Respiratory Pattern Normal 04/26/21 12:45 Blood Pressure 117/75 04/26/21 12:38 Blood Pressure Position Sitting 04/26/21 12:38 Pulse Oximetry 97 04/26/21 12:38 Oxygen Delivery Method Room Air 04/26/21 12:38 Oxygen Flow Rate 0 04/26/21 12:38 Pain Level 10 04/26/21 12:38
== END 2021-04-26 14:30 | disposition home or self-care (01) ==
PROVIDERS: Emergency Provider Student in an Organized Health Care Education/Training Program; PCP Nurse Practitioner Family
DX: K62.89 Other specified diseases of anus and rectum (principal); G89.18 Other acute postprocedural pain; Y83.6 Removal of other organ (partial) (total) as the cause of abnormal reaction of the patient, or of later complication, without mention of misadventure at the time of the procedure
CPT/HCPCS: 99282; 99283

== ENCOUNTER 2023-08-06 11:59 | Emergency (ER) | payer MEDICAID, SELFPAY ==
--- NOTE | 2023-08-06 12:00 | DI.RAD_ITS ---
Exam(s) XR SHOULDER LT COMPLETE 2+V EXAM: XR SHOULDER LT COMPLETE 2+V CLINICAL HISTORY: left shoulder pain at ac joint for months. TECHNIQUE: 2D digital imaging was performed. Three views. COMPARISON: CR CHEST 2 VIEWS PA,LAT from 11/27/2013 CR XR CHEST 2V PA LATERAL from 07/09/2018 FINDINGS: BONES: No acute fracture is present. No bony destructive lesion is seen. JOINTS: No dislocation present. Question mild widening of the AC joint. Cortical clavicular distanc e is normal. Glenohumeral joint space is maintained. SOFT TISSUE: Normal. IMPRESSION: Question mild widening of the AC joint. DATA REPOSITORY: RADIATION DOSE DELIVERED:
[2023-08-06 12:04] VITALS: BP 147/82; PULSE 85; RESP 18; TEMP 36.8; O2SAT 99
[2023-08-06] MEDS: Lidocaine 5% Patch 1 PATCH TP (12:14)
--- NOTE | 2023-08-06 12:30 | W.ED.GENAD ---
Discharge Plan Disposition Patient Disposition: Home Condition: Good Discharge Details Clinical Impression: Left shoulder pain Primary Care Provider: Jolynn Churchill ED Provider: Pedro Cosby Home Meds and New Rx's Prescriptions: New lidocaine [Lidoderm] 5 % adhesive patch,medicated 1 patch Topical Q24H Qty: 15 0RF No Action fluticasone propion-salmeterol [Advair Diskus] 250-50 mcg/dose blister with device 1 inh inhalation BID albuterol sulfate [ProAir HFA] 90 mcg/actuation HFA aerosol inhaler 2 puff IH Q6H PRNQty: 6.7 0RF budesonide-formoterol [Symbicort] 80-4.5 mcg/actuation HFA aerosol inhaler 2 puff IH BID Qty: 6.9 0RF Rx Instructions: not taking acetaminophen 500 mg Tablet 1,000 mg PO DIRECTED PRN Discharge Instructions Instructions: Shoulder Pain (ED) Additional Instructions: At this time there is no evidence of fracture on your x-ray. There is widening of your AC joint as we discussed, which I am concerned is a component of the source of your pain. Please use the sling only as needed. Please take Tylenol and Motrin as needed for pain. You can also use the Lidoderm patches and apply topical Voltaren/diclofenac cream/gel on to your shoulder and the areas where it is sore. We have placed a referral with her financial retirement plan specialist for outpatient follow-up. They will contact you with an appointment time. If you notice any worsening of your symptoms, or any new symptoms such as vomiting, diarrhea, fever, chills, shortness of breath, chest pain, numbness, weakness, or fainting , please return immediately to the emergency department for reevaluation. Please follow up with your primary care provider as soon as possible for reassessment and reevaluation. As always, it was a pleasure participating in your medical care today. Referrals: Scott Cuevas MD [ [facility] STAFF PHYSICIAN] - Jolynn Churchill [Primary Care Provider] - Chacho Chambers MD [ [facility] STAFF PHYSICIAN] - Medical Decision Making This is a very pleasant 38-year-old male who presents today for evaluation of left shoulder pain. He is right-hand dominant. Patient states that months ago he was working and pulled hard on his shoulder and heard a pop in his left shoulder. He had significant pain in the left shoulder at that time, it gradually/eventually got better, then about 2 weeks ago while 4 wheeling he again ER did on his left shoulder and his pain notably returned. It is made worse with movement in every direction. He has been taking Aleve quite frequently to help with the pain. He admits to occasional tingling on the shoulder itself. He denies any chest pain or shortness of breath. He denies any numbness. He denies any trauma otherwise. Pain is made worse with use and Motrin. No other complaints at this time. Exam demonstrates notable tenderness over the AC joint, significant pain with internal rotation as well as anterior and posterior movement. I am concerned that the patient had an AC joint injury few months ago, healed and then reinjured it again causing subsequent pain now. There also may be a component of rotator cuff injury secondary to his exam findings. Suspect mild bursal irritation as well. We will get an x-ray to rule out osseous deformity, give Lidoderm patch, monitor closely and reassess. 1:18 PM X-ray shows evidence of mild widening of the AC joint partially confirming suspicions. Will give Lidoderm patch from use, sling, recommend outpatient follow-up with orthopedics. We will place a referral on his behalf. I suspect that the patient may need further imaging with potential MRI at some point after potential physical therapy through orthopedics. Patient otherwise stable. Will recommend continued NSAIDs Lidoderm patch sling as needed and Voltaren gel topically. Discussed red flags for which to return. I have extensively reviewed the treatment plan and discharge instructions with the patient. I have addressed all patient concerns at this time. The patient was made aware of what symptoms to monitor for that would warrant a return to the emergency department. Discussed the plan with the patient, they demonstrate verbal understanding and agreement with our assessment and plan at this time. The documentation in this chart was dictated using [employer] dictation software. Please excuse any dictation errors. FINDINGS: BONES: No acute fracture is present. No bony destructive lesion is seen. JOINTS: No dislocation present. Question mild widening of the AC joint. Cortical clavicular distance is normal. Glenohumeral joint space is maintained. SOFT TISSUE: Normal. IMPRESSION: Question mild widening of the AC joint. HPI General Date/Time Provider Initiated Documentation: 08/06/23 12:00. HPI Narrative: This is a very pleasant 38-year-old male who presents today for evaluation of left shoulder pain. He is right-hand dominant. Patient states that months ago he was working and pulled hard on his shoulder and heard a pop in his left shoulder. He had significant pain in the left shoulder at that time, it gradually/eventually got better, then about 2 weeks ago while 4 wheeling he again ER did on his left shoulder and his pain notably returned. It is made worse with movement in every direction. He has been taking Aleve quite frequently to help with the pain. He admits to occasional tingling on the shoulder itself. He denies any chest pain or shortness of breath. He denies any numbness. He denies any trauma otherwise. Pain is made worse with use and Motrin. No other complaints at this time. Related Data Home Medications Medication Instructions Recorded Confirmed albuterol sulfate 90 mcg/actuation 2 puff inhalation Q6H PRN #6.7 04/20/20 08/06/23 aerosol inhaler (ProAir HFA) grams budesonide-formoterol HFA 80 2 puff inhalation BID #6.9 grams 04/20/20 08/06/23 mcg-4.5 mcg/actuation aerosol inhaler (Symbicort) fluticasone 250 mcg-salmeterol 50 1 inh inhalation BID 04/18/21 08/06/23 mcg/dose blistr powdr for inhalation (Advair Diskus) acetaminophen 500 mg tablet 1,000 mg PO DIRECTED PRN 04/25/21 08/06/23 lidocaine 5 % topical patch 1 patch topical Q24H #15 ea 08/06/23 (Lidoderm) Previous Rx's Medication Instructions Recorded albuterol sulfate 90 mcg/actuation 2 puff inhalation Q6H PRN #6.7 04/20/20 aerosol inhaler (ProAir HFA) grams budesonide-formoterol HFA 80 2 puff inhalation BID #6.9 grams 04/20/20 mcg-4.5 mcg/actuation aerosol inhaler (Symbicort) lidocaine 5 % topical patch 1 patch topical Q24H #15 ea 08/06/23 (Lidoderm) Allergies Allergy/AdvReac Type Severity Reaction Status Date / Time aloe Allergy Intermediate blisters Verified 08/06/23 12:18 on skin No Known Drug Allergies Allergy Unknown Verified 08/06/23 12:18 mushroom Allergy Anaphylaxis Unverified 08/06/23 12:18 Pickle Allergy Anaphylaxis Uncoded 08/06/23 12:18 General Stated Complaint: Orthopedic GENNARO: 4 Review of Systems All systems reviewed & are unremarkable except as noted in HPI and below PFSH All Active Problems (Updated 08/06/23 @ 13:02 by Pedro Cosby DO) Left shoulder pain (Acute) Post-op pain (Acute) External hemorrhoid, thrombosed (Acute) Medical History Anxiety Chronic cough Chronic lower back pain Cigarette smoker Constipation COPD (chronic obstructive pulmonary disease) Illiteracy Insomnia Major depressive disorder, recurrent PTSD (post-traumatic stress disorder) Spondylosis of lumbar region without myelopathy or radiculopathy Tobacco dependence Undersocialized conduct disorder, aggressive type, unspecified Surgical History H/O wrist surgery History of hemorrhoidectomy Social History Smoking/Tobacco Use Status: Current every day Tobacco Type: cigarettes Smoking risk assessment performed?: Yes Alcohol Intake: former Drug use: Daily Substance use type: marijuana Details: No anika today - 04/26/21 Housing: apartment Do you feel safe at home: Yes Do you feel safe in your relationship?: Yes Exam Narrative Exam Narrative: 1.Const: Well-nourished, Well-developed, appearing stated age 2.Eyes: PERRL, no conjunctival injection, and symmetrical lids. 3.ENT: Atraumatic external nose and ears. Moist MM. Neck: Symmetric, trachea midline, No thyromegaly. 4.CVS: +S1/S2, No murmurs or gallops. Peripheral pulses 2+ and equal in all extremities. Brisk capillary refill in all extremities. 5.RESP: Unlabored respiratory effort. Clear to auscultation bilaterally. No wheezes rales or rhonchi 6.GI: Soft, Nontender/Nondistended, No hepatosplenomegaly. No guarding or rebound. 7.MSK: Normocephalic/Atraumatic, Extremities w/o deformity. No cyanosis or clubbing, Normal movement of all extremities. Patient does demonstrate tenderness over the AC joint and the left shoulder. Mild swelling in this area. Slightly restricted range of motion, notable pain with internal rotation, flexion and extension/anterior/posterior movement. Normal strength otherwise. Notable pain and tenderness with empty can test 8.Skin: Warm, Dry. No rashes or lesions. 9.Neuro: treasury specialist II-XII grossly intact. Sensation grossly intact, no focal neurologic deficits. 10.Psych: (AAO) x3. Appropriate mood and affect Course Vital Signs Vital signs: Vital Signs Temperature 36.8 C 08/06/23 12:04 Pulse 85 08/06/23 12:04 Respiratory Rate 18 08/06/23 12:04 Blood Pressure 147/82 H 08/06/23 12:04 Pulse Oximetry 99 08/06/23 12:04 Temperature 36.8 C 08/06/23 12:04 Temperature Source Skin 08/06/23 12:04 Pulse 85 08/06/23 12:04 Respiratory Rate 18 08/06/23 12:04 Respiratory Effort Normal, Non-Labored 08/06/23 12:16 Blood Pressure 147/82 H 08/06/23 12:04 Blood Pressure Position Sitting 08/06/23 12:04 Pulse Oximetry 99 08/06/23 12:04 Oxygen Delivery Method Room Air 08/06/23 12:04 Oxygen Flow Rate 0 08/06/23 12:04 Pain Level 8 08/06/23 12:04
[2023-08-06 13:22] VITALS: BP 147/82; PULSE 85; RESP 18; TEMP 36.8; O2SAT 99
== END 2023-08-06 13:23 | disposition home or self-care (01) ==
PROVIDERS: Emergency Provider Student in an Organized Health Care Education/Training Program; PCP Nurse Practitioner Family
DX: M25.512 Pain in left shoulder (principal); K64.5 Perianal venous thrombosis
CPT/HCPCS: 99283; 73030

== ENCOUNTER 2023-08-16 01:50 | Outpatient (CLI) | payer MEDICAID, SELFPAY ==
--- NOTE | 2023-08-16 09:00 | DI.MRI_ITS ---
Exam(s) MR UPPER JOINT LT WO EXAM: MR UPPER JOINT LT WO CLINICAL HISTORY: AC joint injury, LT SHOULDER PAIN, M25.512. TECHNIQUE: Multiplanar multisequence MRI was performed. COMPARISON: CR XR SHOULDER LT COMPLETE 2+V from 08/06/2023 FINDINGS: BONES: There is no fracture or contusion pattern. JOINTS: There is normal marrow signal in the distal clavicle and adjacent acromion. No evidence of a fracture. There is a small amount of fluid seen within the joint. The glenohumeral joint is normal . TENDONS: Supraspinatus: Unremarkable. Infraspinatus: Unremarkable. Subscapularis: Unremarkable. Teres Minor: Unremarkable. Biceps and [place]: Unremarkable. MUSCLES: Unremarkable. GLENOID LABRUM: Unremarkable on this noncontrast examination. SOFT TISSUES: Unremarkable. LIGAMENTS: Unremarkable. The coracoid clavicular ligament is unremarkable. The coracoacromial ligame nt appears intact as does the coracoid humeral ligament. OTHER: Subacromial and subdeltoid bursae are unremarkable. There is a small amount of fluid in the schuler bcoracoid bursa. IMPRESSION: 1. There is mild hyperintense signal seen at the acromioclavicular joint which may represent a sprain . It does not appear to be widened. 2. No evidence of a rotator cuff or labral tear on this noncontrast examination. 3. No findings to suggest a fracture. DATA REPOSITORY:
== END 2023-08-16 02:10 ==
LOC: DI 01:51
PROVIDERS: PCP Nurse Practitioner Family; Visit Provider Student in an Organized Health Care Education/Training Program
DX: M25.512 Pain in left shoulder (principal)
CPT/HCPCS: 73221

== ENCOUNTER 2024-05-31 20:00 | Emergency (ER) | payer MEDICAID, SELFPAY ==
[2024-05-31 20:14] VITALS: BP 125/90; PULSE 88; RESP 14; TEMP 36.3; O2SAT 98
[2024-05-31] MEDS: Clindamycin 150 MG CAP, 12 CAPS/BTL 450 MG PO (21:54)
--- NOTE | 2024-06-01 18:00 | W.ED.GENAD ---
Discharge Plan Disposition Patient Disposition: Home Condition: Stable Discharge Details Clinical Impression: Cellulitis, Laceration of finger Primary Care Provider: EDI SOARES ED Provider: Yazmin Reeys Home Meds and New Rx's Prescriptions: New clindamycin HCl 150 mg capsule 450 mg PO TID Qty: 90 0RF Continued fluticasone propion-salmeterol [Advair Diskus] 250-50 mcg/dose blister with device 1 inh inhalation BID lidocaine [Lidoderm] 5 % adhesive patch,medicated 1 patch Topical Q24H Qty: 15 0RF albuterol sulfate [ProAir HFA] 90 mcg/actuation HFA aerosol inhaler 2 puff IH Q6H PRNQty: 6.7 0RF budesonide-formoterol [Symbicort] 80-4.5 mcg/actuation HFA aerosol inhaler 2 puff IH BID Qty: 6.9 0RF Rx Instructions: not taking acetaminophen 500 mg Tablet 1,000 mg PO DIRECTED PRN Discharge Instructions Instructions: Cellulitis (Skin Infection), Adult ED Additional Instructions: Keep wounds clean and dry Take antibiotic as prescribed Try not to bend her finger is much as possible at will heal more quickly if you let it rest Return with fever, chills, persistently spreading redness, or should any new concerns arise Referrals: EDI SOARES, TABLE TOP TILE SETTER [Primary Care Provider] - Discharge Data Discharge Date/Time-TO BE ENTERED AT DEPARTURE: 05/31/24 21:57 HPI General Date/Time Provider Initiated Documentation: 05/31/24 20:32. HPI Narrative: This 38-year-old male presents with injury to right index finger on 05/28/2024. He states that he cut it on some rebar and now is red and swollen. He states he has had some intermittent purulent drainage. States last tetanus shot was approximately 8 years ago. Has pain with movement but is able to flex and extend his finger. Sensation intact. Denies systemic signs of illness. Related Data Home Medications ?Medication ?Instructions ?Recorded ?Confirmed albuterol sulfate 90 mcg/actuation 2 puff inhalation Q6H PRN #6.7 04/20/20 11/27/23 aerosol inhaler (ProAir HFA) grams budesonide-formoterol HFA 80 2 puff inhalation BID #6.9 grams 04/20/20 11/27/23 mcg-4.5 mcg/actuation aerosol inhaler (Symbicort) fluticasone 250 mcg-salmeterol 50 1 inh inhalation BID 04/18/21 11/27/23 mcg/dose blistr powdr for inhalation (Advair Diskus) acetaminophen 500 mg tablet 1,000 mg PO DIRECTED PRN 04/25/21 11/27/23 lidocaine 5 % topical patch 1 patch topical Q24H #15 ea 08/06/23 11/27/23 (Lidoderm) clindamycin HCl 150 mg capsule 450 mg (3 x 150 mg) PO TID #90 caps 05/31/24 Previous Rx's ?Medication ?Instructions ?Recorded albuterol sulfate 90 mcg/actuation 2 puff inhalation Q6H PRN #6.7 04/20/20 aerosol inhaler (ProAir HFA) grams budesonide-formoterol HFA 80 2 puff inhalation BID #6.9 grams 04/20/20 mcg-4.5 mcg/actuation aerosol inhaler (Symbicort) lidocaine 5 % topical patch 1 patch topical Q24H #15 ea 08/06/23 (Lidoderm) clindamycin HCl 150 mg capsule 450 mg (3 x 150 mg) PO TID #90 caps 05/31/24 Allergies Allergy/AdvReac Type Severity Reaction Status Date / Time aloe Allergy Intermediate blisters Verified 08/28/23 14:24 on skin No Known Drug Allergies Allergy Unknown Verified 08/28/23 14:24 mushroom Allergy Anaphylaxis Unverified 08/28/23 14:24 Pickle Allergy Anaphylaxis Uncoded 08/28/23 14:24 General Stated Complaint: Cellulitis GENNARO: 3 Exam Narrative Exam Narrative: Right index finger with swelling and redness, overlying the ulnar aspect. Laceration well-approximated with surrounding erythema, no obvious fluctuance, cap refill intact distally, no lymphangitis Course Vital Signs Vital signs: Vital Signs Temperature 36.3 C L 05/31/24 20:14 Pulse 88 05/31/24 20:14 Respiratory Rate 14 05/31/24 20:14 Blood Pressure 125/90 05/31/24 20:14 Pulse Oximetry 98 05/31/24 20:14 Temperature 36.3 C L 05/31/24 20:14 Temperature Source Skin 05/31/24 20:14 Pulse 88 05/31/24 20:14 Respiratory Rate 14 05/31/24 20:14 Blood Pressure 125/90 05/31/24 20:14 Pulse Oximetry 98 05/31/24 20:14 Oxygen Delivery Method Room Air 05/31/24 20:14 Oxygen Flow Rate 0 05/31/24 20:14 Pain Level 8 05/31/24 20:14 Procedures Abscess I/D Site: Hand Side (if applicable): Right Sedation/analgesia: None Local Anesthetic: Lidocaine 1% Amount of anesthesia used (mL): 2 Technique: Needle Aspiration and Incised with #11 Blade Amount of fluid expressed (mL): 3 Irrigation: Yes Packing used?: None Complications: Pain Medical Decision Making 38-year-old male presenting with cellulitis, to right index finger. Denies significant trauma or risk of foreign body. Tetanus is up-to-date per patient. Will initiate antibiotics and try to perform incision and drainage. Incision and drainage was attempted, there was serosanguineous bloody but no purulent drainage. Dressing was applied and patient was instructed to refrain from flexion and extension. He will return immediately with any systemic signs of illness. Clindamycin initiated 450 mg 3 times daily for 10 days. Recheck in 48 hours recommended. Quality:SDOH Health Related Social Needs: No Data to Display PFSH All Active Problems (Updated 05/31/24 @ 21:44 by ALLISON Fernandez) Laceration of finger (Acute) Cellulitis (Acute) No-show for appointment (Acute) Post-op pain (Acute) External hemorrhoid, thrombosed (Acute) Medical History Anxiety Chronic cough Chronic lower back pain Cigarette smoker Constipation COPD (chronic obstructive pulmonary disease) Illiteracy Insomnia Major depressive disorder, recurrent PTSD (post-traumatic stress disorder) Spondylosis of lumbar region without myelopathy or radiculopathy Tobacco dependence Undersocialized conduct disorder, aggressive type, unspecified Surgical History H/O wrist surgery History of hemorrhoidectomy Social History Smoking/Tobacco Use Status: Current every day Tobacco Type: cigarettes Smoking risk assessment performed?: Yes Alcohol Intake: former Drug use: Daily Substance use type: marijuana Details: No anika today - 04/26/21 Housing: apartment Current gender identity: male Do you feel safe at home: Yes Do you feel safe in your relationship?: Yes
== END 2024-05-31 21:57 | disposition home or self-care (01) ==
PROVIDERS: Emergency Provider Physician Assistant; PCP Nurse Practitioner Family
DX: S61.210D Laceration without foreign body of right index finger without damage to nail, subsequent encounter (principal); L03.011 Cellulitis of right finger; F17.210 Nicotine dependence, cigarettes, uncomplicated; X58.XXXD Exposure to other specified factors, subsequent encounter
CPT/HCPCS: 10060; 99283

== ENCOUNTER 2024-08-19 16:50 | Emergency (ER) | payer MEDICAID, SELFPAY ==
[2024-08-19 16:59] VITALS: BP 118/85; PULSE 78; RESP 18; TEMP 36.3; O2SAT 95
== END 2024-08-19 18:10 | disposition left against medical advice (07) ==
LOC: ER 18:00
PROVIDERS: PCP Nurse Practitioner Family
DX: Z53.21 Procedure and treatment not carried out due to patient leaving prior to being seen by health care provider (principal)

== ENCOUNTER 2024-09-08 13:06 | Emergency (ER) | payer MEDICAID, SELFPAY ==
--- NOTE | 2024-09-08 13:30 | DI.RAD_ITS ---
Exam(s) XR SHOULDER RT COMPLETE 2+V EXAM: XR SHOULDER RT COMPLETE 2+V CLINICAL HISTORY: R shoulder pain. TECHNIQUE: 2D digital imaging was performed. Five views. COMPARISON: MR MR UPPER JOINT LT WO from 08/16/2023 FINDINGS: BONES: No acute fracture is present. No bony destructive lesion is seen. JOINTS: No dislocation present. SOFT TISSUE: Normal. IMPRESSION: Unremarkable radiographs of the right shoulder. DATA REPOSITORY: RADIATION DOSE DELIVERED:
[2024-09-08 13:56] VITALS: BP 146/78; PULSE 100; RESP 20; TEMP 37; O2SAT 96
--- NOTE | 2024-09-08 15:16 | ED.GENADUL_ITS ---
Discharge Plan Disposition Patient Disposition: Home Condition: Stable Discharge Details Clinical Impression: Rotator cuff arthropathy of right shoulder Primary Care Provider: EDI SOARES ED Provider: Pedro Leyva Home Meds and New Rx's Prescriptions: Continued fluticasone propion-salmeterol [Advair Diskus] 250-50 mcg/dose blister with device 1 inh inhalation BID lidocaine [Lidoderm] 5 % adhesive patch,medicated 1 patch Topical Q24H Qty: 15 0RF albuterol sulfate [ProAir HFA] 90 mcg/actuation HFA aerosol inhaler 2 puff IH Q6H PRNQty: 6.7 0RF budesonide-formoterol [Symbicort] 80-4.5 mcg/actuation HFA aerosol inhaler 2 puff IH BID Qty: 6.9 0RF Rx Instructions: not taking acetaminophen 500 mg Tablet 1,000 mg PO DIRECTED PRN Discharge Instructions Instructions: Rotator cuff injury Additional Instructions: You were seen in the emergency department for your right rotator cuff arthropathy. Use the sling sparingly, come out of the sling frequently to perform pendulum exercises, please use therapeutic dosing of Tylenol (acetamenophen) & Advil (ibuprofen) in an alternating fashion as follows: Take 1000mg of Tylenol every 6 hours without missing doses- that is 4 times per day. Mcfp in between the Tylenol dosings, take 400-600mg of Advil also on a 6 hour schedule, that is also 4 times per day. The daily maximum dosing of Tylenol is 4000mg, and the daily maximum dosing of Advil is 2400mg. This is safe to do for weeks. Please note that some common cold medications & prescription pain medications may contain acetamenophen and you need to read OTC drug labels and factor that in to maximum daily dosings. Please rest, ice the shoulder frequently. Follow-up with orthopedics I have placed you on their follow-up list. Return to the emergency department for signs of neurovascular compromise Referrals: [facility] [Provider Group] EDI SOARES, [facility] [Primary Care Provider] - Discharge Data Discharge Date/Time-TO BE ENTERED AT DEPARTURE: 09/08/24 16:00 HPI General Date/Time Provider Initiated Documentation: 09/08/24 13:36 . 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 Quality described as felt a pop on the way up and pop and burn on the way down from reaching, no radiation to bruising, numbness/tingling, swelling, deformity, neck pain, fall, trauma. Severity is described as severe. Palliating factors include taking Tylenol and ibuprofen. Provoking factors include any movement of R arm. Patient not anticoagulated. Related Data Home Medications ?Medication ?Instructions ?Recorded ?Confirmed albuterol sulfate 90 mcg/actuation 2 puff inhalation Q6H PRN #6.7 04/20/20 09/08/24 aerosol inhaler (ProAir HFA) grams budesonide-formoterol HFA 80 2 puff inhalation BID #6.9 grams 04/20/20 09/08/24 mcg-4.5 mcg/actuation aerosol inhaler (Symbicort) fluticasone 250 mcg-salmeterol 50 1 inh inhalation BID 04/18/21 09/08/24 mcg/dose blistr powdr for inhalation (Advair Diskus) acetaminophen 500 mg tablet 1,000 mg PO DIRECTED PRN 04/25/21 09/08/24 lidocaine 5 % topical patch 1 patch topical Q24H #15 ea 08/06/23 09/08/24 (Lidoderm) Previous Rx's ?Medication ?Instructions ?Recorded albuterol sulfate 90 mcg/actuation 2 puff inhalation Q6H PRN #6.7 04/20/20 aerosol inhaler (ProAir HFA) grams budesonide-formoterol HFA 80 2 puff inhalation BID #6.9 grams 04/20/20 mcg-4.5 mcg/actuation aerosol inhaler (Symbicort) lidocaine 5 % topical patch 1 patch topical Q24H #15 ea 08/06/23 (Lidoderm) Allergies Allergy/AdvReac Type Severity Reaction Status Date / Time aloe Allergy Intermediate blisters Verified 09/08/24 14:02 on skin mushroom Allergy Anaphylaxis Unverified 09/08/24 14:02 Pickle Allergy Anaphylaxis Uncoded 09/08/24 14:02 General Stated Complaint: Orthopedic GENNARO: 4 Review of Systems All systems reviewed & are unremarkable except as noted in HPI and below Exam Narrative Exam Narrative: GENERAL APPEARANCE: Well-nourished, non-toxic, awake and alert, atraumatic, no acute distress. SKIN: Warm, pink, dry, intact, without rashes/lesions/ulcerations. HEAD: Normocephalic, atraumatic, normal hair distribution for gender/age. EYES: Normal conjunctiva, no exudates on lids/lashes. ENT: Nares patent, no circumoral cyanosis, no facial swelling NECK: Supple, trachea midline, painless cervical ROM, no midline vertebral t enderness. LUNGS/CHEST: Non-labored respirations, normal A/P diameter, symmetrical expansion, no chest wall deformity HEART (CV/PV): Regular rate, R radial pulse 2+, no peripheral edema, no JVD. ABDOMEN: Soft, non-distended, no guarding. MSK: Normal ROM, no swelling/deformity to bilateral UEs or LEs, moving all extremities without weakness, no cyanosis, spine midline without tenderness, normal curvature, right shoulder has diffuse tenderness without crepitus, very limited range of motion cannot even raise the arm to 90 degrees, speeds and empty can positive NEURO: Mental Status AAOx4 - alert to person, place, time, events No facial droop, no forehead involvement. Motor: No focal weakness - strength 5/5 in bilateral UEs and LEs, proximal and distal, symmetric. Sensory: sensation intact to light touch globally. Gait normal: patient ambulated without ataxia into ED room. PSYCH: euthymic, cooperative, pleasant, appropriate speech Course Vital Signs Vital signs: Vital Signs Temperature 37.0 C 09/08/24 13:56 Pulse 100 H 09/08/24 13:56 Respiratory Rate 20 09/08/24 13:56 Blood Pressure 146/78 H 09/08/24 13:56 Pulse Oximetry 96 09/08/24 13:56 Temperature 37.0 C 09/08/24 13:56 Pulse 100 H 09/08/24 13:56 Respiratory Rate 20 09/08/24 13:56 Respiratory Effort Normal 09/08/24 14:00 Blood Pressure 146/78 H 09/08/24 13:56 Pulse Oximetry 96 09/08/24 13:56 Oxygen Delivery Method Room Air 09/08/24 13:56 Oxygen Flow Rate 0 09/08/24 13:56 Pain Level 5 09/08/24 14:06 Medical Decision Making This dictation utilizes [id number] dictation software and may contain unedited grammatical errors. 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 Quality described as felt a pop on the way up and pop and burn on the way down from reaching, no radiation to bruising, numbness/tingling, swelling, deformity, neck pain, fall, trauma. Severity is described as severe. Palliating factors include taking Tylenol and ibuprofen. Provoking factors include any movement of R arm. Patients' medical history: COPD, chronic lower back pain. Family and social history: Works construction, endorses marijuana use. Pertinent exam findings / vital signs include speeds and empty can positive, diffuse right shoulder tenderness to palpation, no midline vertebral tenderness, right radial pulse 2+, sensation intact. Differential / pathologies of concern include rotator cuff arthropathy, strain/sprain, not NV compromise. Diagnostic studies of: -XR R shoulder - no acute fracture. Interventions of: -sling- stressed need for pendulum exercises dozens of times per day. 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 Findings not consistent with fracture/neurovascular compromise. Disposition of rotator cuff arthropathy of right shoulder. Patient verbalized understanding of the plan and return to ED criteria and engaged in shared decision making. Medical Records Medical records reviewed: Yes I reviewed the patient's medical records. Imaging Data Radiologic Study: Attestation: I personally reviewed and interpreted this imaging study as follows: Imaging: X-Ray Radiologist's impression: EXAM: XR SHOULDER RT COMPLETE 2+V CLINICAL HISTORY: R shoulder pain. TECHNIQUE: 2D digital imaging was performed. Five views. COMPARISON: MR MR UPPER JOINT LT WO from 08/16/2023 FINDINGS: BONES: No acute fracture is present. No bony destructive lesion is seen. JOINTS: No dislocation present. SOFT TISSUE: Normal. IMPRESSION: Unremarkable radiographs of the right shoulder. Quality:SDOH Health Related Social Needs: Health related social needs housing instability, house d, with risk of homelessness(Z59.811) PFSH All Active Problems (Updated 09/08/24 @ 15:20 by ALLISON Hopper) Rotator cuff arthropathy of right shoulder (Acute) No-show for appointment (Acute) Post-op pain (Acute) External hemorrhoid, thrombosed (Acute) Medical History Anxiety Chronic cough Chronic lower back pain Cigarette smoker Constipation COPD (chronic obstructive pulmonary disease) Illiteracy Insomnia Major depressive disorder, recurrent PTSD (post-traumatic stress disorder) Spondylosis of lumbar region without myelopathy or radiculopathy Tobacco dependence Undersocialized conduct disorder, aggressive type, unspecified Surgical History H/O wrist surgery History of hemorrhoidectomy Social History Smoking/Tobacco Use Status: Current every day Tobacco Type: cigarettes Smoking risk assessment performed?: Yes Alcohol Intake: former Drug use: Daily Substance use type: marijuana Housing: apartment Current gender identity: male Do you feel safe at home: Yes Do you feel safe in your relationship?: Yes
== END 2024-09-08 16:00 | disposition home or self-care (01) ==
PROVIDERS: Emergency Provider Physician Assistant; PCP Nurse Practitioner Family
DX: M12.811 Other specific arthropathies, not elsewhere classified, right shoulder (principal); J44.9 Chronic obstructive pulmonary disease, unspecified; F17.210 Nicotine dependence, cigarettes, uncomplicated
CPT/HCPCS: 99283; 73030

== ENCOUNTER 2024-10-09 02:13 | Outpatient (CLI) | payer MEDICAID, SELFPAY ==
--- NOTE | 2024-10-09 | DI.MRI_ITS ---
Exam(s) MR UPPER JOINT RT WO EXAM: MR UPPER JOINT RT WO CLINICAL HISTORY: INJURY RT ROTATOR CUFF, M25.511, SEVERE RT ANTERIOR SHOULDER PAIN X 2 WKS TECHNIQUE: Multiplanar multisequence MRI of the shoulder was performed. COMPARISON: CR XR SHOULDER LT COMPLETE 2+V from 08/06/2023 MR MR UPPER JOINT LT WO from 08/16/2023 CR XR SHOULDER RT COMPLETE 2+V from 09/08/2024 FINDINGS: MARROW:There is no evidence of fracture, Hill-Sachs deformity, nor ominous osseous lesions. There is a small degenerative subarticular cysts in the posterolateral aspect of the humeral head. GLENOHUMERAL JOINT: No joint effusion nor obvious loose intra-articular bodies. No chondral defects. No osteophytes. No degenerative subarticular cysts. ROTATOR CUFF MECHANISM: AC JOINT/ACROMIUM: Mild degenerative changes in the AC joint. Mild increased signal is noted in the region of the cortical clavicular ligament but without full-thickness tear of this structure. There is no evidence of os acromiale. Supraspinatus: There is some tendinitis signal seen in the supraspinatus tendon. No full-thickness t ear evident. No retraction. There is mild edema in the subacromial space. No muscle atrophy eviden t. Infraspinatus: Intact. No evidence of tear nor muscle atrophy. Teres Minor: Intact. No evidence of tear nor muscle atrophy. Subscapularis/anterior cuff: Intact. No abnormal signal at the level of the multipennate insertional fibers. No significant tear nor atrophy. BICEPS TENDON: Exhibits normal position within the intertubercular groove. No evidence of tear. No tenosynovitis. LABRUM: No labral tear identified. No evidence of paralabral cyst. LABROLIGAMENTOUS/CAPSULAR COMPLEX: There is no evidence of avulsion of the anterior-inferior labrum, capsule, inferior glenohumeral liga ment complex nor disruption of the scapular periosteum to suggest the presence of a Bankart lesion. Also no evidence of obvious Bankart lesion variants. QUADRILATERAL SPACE: No evidence of mass in the region of the axillary nerve and dorsal circumflex hu meral vessels. Visualized triceps muscle at this level appears unremarkable. IMPRESSION: 1. There is signal abnormality consistent with tendinitis in the supraspinatus-rotator cuff tendon an d there is mild edema in the overlying subacromial bursa. There is no high-grade tear of this struct ure nor retraction musculotendinous junction nor evidence of atrophy. There is some mild degenerativ e change in the AC joint. 2. There is also mild increased signal in the region of the coracoclavicular ligament but without ful l-thickness tear of this structure. 3. Other components of the rotator cuff mechanism appear intact 4. No evidence of biceps tendon nor labral tear. DATA REPOSITORY:
== END 2024-10-09 02:33 ==
LOC: DI 02:15
PROVIDERS: PCP Nurse Practitioner Family; Visit Provider Nurse Practitioner Family
DX: M75.31 Calcific tendinitis of right shoulder (principal)
CPT/HCPCS: 73221